=== PATIENT | female | born 1985 | race Asian ===

== ENCOUNTER 2020-08-20 11:06 | Emergency (ER) | payer BC ==
--- NOTE | 2020-08-20 11:34 | ED Physician Documentation ---
PD HPI ABD PAIN - Stated complaint Stated Complaint: NAUSEA,STOMACH PX - Chief complaint Chief Complaint: Abd Pain - History obtained from History obtained from: Patient - History of Present Illness Timing - onset: How many hours ago (few hours of notable/moderately severe pain lower abd; has had some cramping pains for 2-3 days but thought she might be constipated. Had her IU removed at PCP clinic about 1 1/2 months ago. Has not had period yet.), Today Timing - duration: Hours (few) Timing - details: Abrupt onset, Still present (it is lessening in severity since the onset this morning.) Quality: Cramping, Aching, Pain Location: RLQ, Suprapubic Radiation: Lower back Improved by: Laying still Worsened by: Moving, Palpation. No: Breathing Associated symptoms: Nausea, Constipation (had less stools for a few days, but then normal BM the past 2 days.). No: Fever, Vomiting, Diarrhea Similar symptoms before: Has not had sx before Recently seen: Clinic (IUD removed 1 1/2 weeks ago) Review of Systems Constitutional: denies: Fever, Chills Nose: denies: Rhinorrhea / runny nose, Congestion Throat: denies: Sore throat Respiratory: denies: Cough GI: reports: Abdominal Pain, Nausea. denies: Vomiting, Diarrhea : denies: Dysuria, Frequency, Discharge, Vaginal bleeding Skin: denies: Rash, Lesions PD PAST MEDICAL HISTORY - Past Medical History Past Medical History: No - Past Surgical History Past Surgical History: No - Present Medications Home Medications: Ambulatory Orders Medication Instructions Recorded Confirmed HYDROcod/ACETAM 5/325 [[place] 5/325] 1 ea PO Q6H PRN #15 tablet 08/20/20 Naproxen Sodium [Anaprox Ds] 550 mg PO BID #20 tablet 08/20/20 - Allergies Allergies/Adverse Reactions: Allergies Allergy/AdvReac Type Severity Reaction Status Date / Time No Known Drug Allergies Allergy Verified 08/20/20 13:11 PD ED PE NORMAL - Vitals Vital signs reviewed: Yes - General General: Alert and oriented X 3, Well developed/nourished, Other (seems somewhat in pain) - Neck Neck: Supple, no meningeal sign, No adenopathy - Cardiac Cardiac: RRR, No murmur - Respiratory Respiratory: Clear bilaterally - Abdomen Abdomen: Soft, Non distended, No organomegaly, Other (decreased bowel sounds and is tender lower abd mid and right with some mild guarding. No perucssion tenderness, but mild local rebound. ) - Female Female : Deferred - Rectal Rectal: Deferred - Back Back: No CVA TTP - Derm Derm: Normal color, Warm and dry - Extremities Extremities: No edema, No calf tenderness / cord - Neuro Neuro: Alert and oriented X 3, No motor deficit, Normal speech Results - Vitals Vitals: Vital Signs - 24 hr 08/20/20 08/20/20 11:11 13:40 Temperature 36.3 C L 37.0 C Heart Rate 78 68 Respiratory 16 12 Rate Blood Pressure 108/71 102/63 O2 Saturation 100 100 Oxygen O2 Source Room air - Labs Labs: Laboratory Tests 08/20/20 08/20/20 08/20/20 11:30 11:40 11:40 WBC 4.8 RBC 4.36 Hgb 13.3 Hct 40.6 MCV 93.1 MCH 30.5 MCHC 32.8 RDW 11.9 L Plt Count 319 MPV 9.7 Neut # (Auto) 2.6 Lymph # (Auto) 1.6 Mayes # (Auto) 0.3 Eos # (Auto) 0.3 Baso # (Auto) 0.0 Absolute Nucleated RBC 0.00 Nucleated RBC % 0.0 Sodium 141 Potassium 3.9 Chloride 106 Carbon Dioxide 27 Anion Gap 8.0 BUN 13 Creatinine 0.7 Estimated GFR (MDRD) 95 Glucose 80 Calcium 9.3 Total Bilirubin 0.8 AST 16 ALT 14 Alkaline Phosphatase 33 L Total Protein 7.2 Albumin 4.1 Globulin 3.1 Albumin/Globulin Ratio 1.3 Lipase 82 H Urine Color YELLOW Urine Clarity CLEAR Urine pH 7.0 Ur Specific [place] 1.010 Urine Protein NEGATIVE Urine Glucose (UA) NEGATIVE Urine Ketones NEGATIVE Urine Occult Blood NEGATIVE Urine Nitrite NEGATIVE Urine Bilirubin NEGATIVE Urine Urobilinogen 0.2 (NORMAL) Ur Leukocyte Esterase MODERATE H Urine RBC 0-5 Urine WBC 6-10 H Ur Squamous Epith Cells FEW Squamous Urine Bacteria Few Ur Microscopic Review INDICATED Urine Culture Comments INDICATED Urine HCG, Qual NEGATIVE - Rads (name of study) pelvic U/S Radiology: Prelim report reviewed, See rad report, Other (from U/S tech - large partly collapsed cyst 5x3x2 cm with moderate free fluid in pelvis. ) PD MEDICAL DECISION MAKING - ED course Complexity details: considered differential (not peritoneal on exam, but does have local lower abd tenderness, more to the right. ), d/w patient, d/w excellence consultant (Dr. Richard, senior coldfusion developer, who said no acute interventions needed and will follow up pt in office and repeat U/S at an interval assuming pain improves. ) Departure - Departure Disposition: 01 Home, Self Care Clinical Impression: Acute pelvic pain Ovarian cyst Qualifiers: Laterality: right Qualified Code(s): N83.201 - Unspecified ovarian cyst, right side Condition: Stable Record reviewed to determine appropriate education?: Yes Instructions: ED Cyst Ovarian Follow-Up: Tiffanie Richard MD [Provider Admit Priv/Credential] - Prescriptions: Naproxen Sodium [Anaprox Ds] 550 mg PO BID #20 tablet HYDROcod/ACETAM 5/325 [[place] 5/325] 1 ea PO Q6H PRN #15 tablet PRN Reason: Pain Comments: Your ultrasound shows an ovarian cyst that is partially collapsed, meaning it is leaking its fluid out into your pelvic area causing the pain and irritation. This is typically not a problem as long as it does not cause too much pain and as long as the cyst collapses completely and does not continue. In the short-term we would treat with anti-inflammatories of naproxen or ibuprofen and add Tylenol or hydrocodone as needed for pain. I would anticipate improvement in your pain over the next several days and be resolved within 3 to 5 days. Return if worse despite medicines. Follow-up with gynecology over the next 2 to 3 weeks for a recheck and they would likely want to reultrasound to make sure the cyst is completely resolved. Return if worsening pain or problems. Discharge Date/Time: 08/20/20 14:39
[2020-08-20 11:49] LABS: BILIRUBIN,URINE NEGATIVE (NEGATIVE); GLUCOSE, URINE (UA) NEGATIVE (NEGATIVE); KETONES,URINE (UA) NEGATIVE (NEGATIVE); LEUKOCYTE ESTERASE, URINE MODERATE (NEGATIVE); NITRITE,URINE NEGATIVE (NEGATIVE); OCCULT BLOOD,URINE NEGATIVE (NEGATIVE); PROTEIN,URINE NEGATIVE (NEGATIVE); UROBILINOGEN,URINE 0.2 (NORMAL) E.U./dL (NORMAL)
[2020-08-20 11:50] LABS: CLARITY,URINE CLEAR (CLEAR)
[2020-08-20 11:51] LABS: HCG UR QUAL NEGATIVE
[2020-08-20] MEDS ORDERED: KETOROLAC 15 MG/ML VIAL IVP STA (12:00)
[2020-08-20] MEDS ORDERED: DOCUSATE SODIUM 100 MG CAPSULE PO STA (12:00)
[2020-08-20 12:03] LABS: BASOPHILS % (AUTO) 0.6 %; EOSINOPHILS # (AUTO) 0.3 10^3/uL (0.0-0.7); EOSINOPHILS % (AUTO) 5.8 %; HCT - HEMATOCRIT 40.6 % (37.0-47.0); HGB - HEMOGLOBIN 13.3 g/dL (12.0-16.0); LYMPHOCYTES # (AUTO) 1.6 10^3/uL (1.5-3.5); LYMPHOCYTES % (AUTO) 33.5 %; MEAN CORPUSCULAR HEMOGLOBIN 30.5 pg (27.0-31.0); MEAN CORPUSCULAR HGB CONC 32.8 g/dL (32.0-36.0); MEAN CORPUSCULAR VOLUME 93.1 fL (81.0-99.0); MEAN PLATELET VOLUME 9.7 fL (7.9-10.8); MONOCYTES # (AUTO) 0.3 10^3/uL (0.0-1.0); MONOCYTES % (AUTO) 5.6 %; NEUTROPHILS # (AUTO) 2.6 10^3/uL (1.5-6.6); NEUTROPHILS % (AUTO) 54.3 %; PLT - PLATELET COUNT 319 10^3/uL (130-450); RED BLOOD COUNT 4.36 10^6/uL (4.20-5.40); RED CELL DISTRIBUTION WIDTH 11.9 % (12.0-15.0); WHITE BLOOD COUNT 4.8 x10^3/uL (4.8-10.8)
[2020-08-20 12:04] LABS: BACTERIA,URINE Few /HPF (None Seen); RBC,URINE 0-5 /HPF (0-5); SQUAMOUS EPITHELIAL CELL,UR FEW Squamous (<= Few)
[2020-08-20 12:16] LABS: ALBUMIN 4.1 g/dL (3.2-5.5); ALBUMIN/GLOBULIN RATIO 1.3 (1.0-2.2); BILIRUBIN,TOTAL 0.8 mg/dL (0.2-1.0); CALCIUM 9.3 mg/dL (8.5-10.3); CREATININE 0.7 mg/dL (0.4-1.0); POTASSIUM 3.9 mmol/L (3.5-5.0); TOTAL PROTEIN 7.2 g/dL (6.7-8.2)
[2020-08-20] MEDS ORDERED: ONDANSETRON 4 MG/2 ML VIAL IVP STA (13:32)
[2020-08-20] MEDS ORDERED: AMOX/CLAV 875 MG/125 MG TABLET PO STA (13:32)
[2020-08-20 13:41] VITALS: BP 102/63
--- NOTE | 2020-08-20 13:53 | Ultrasound Report ---
PROCEDURE: Pelvic w/Transvag+Doppler Comp INDICATIONS: lower abd cramping; IUD removed a month ago TECHNIQUE: Real-time scanning was performed of the pelvic organs, with image documentation. Additional endovagi nal scanning was necessary due to incomplete visualization of the adnexal and endometrial structures by transabdominal scanning. COMPARISON: None. FINDINGS: Transabdominal scanning: Limited scanning through the kidneys shows no hydronephrosis. There is a sm all amount of free abdominal or pelvic fluid. Endovaginal scanning: Uterus: Uterus is normal in size at 8.4 x 4.6 x 4.3 cm. Uterus is anteverted. The endometrium measu res 1.4 mm in combined thickness. Ovaries: Right ovary measures 6.4 x 2.8 x 2.4 cm. There is a 5.2 x 2.0 x 3.6 cm cyst in the right ov [place]. Left ovary measures 3.5 x 2.2 x 1.9 cm. IMPRESSION: 1. A 5.2 x 2.0 x 3.6 cm cyst in the right ovary. Recommend a short-term follow-up ultrasound in 6 wee ks. 2. Normal left ovary. 3. Unremarkable ultrasound appearance of uterus. 4. A small amount of free fluid in pelvis, which is nonspecific. Reviewed by: Lucy Hogan MD on 08/20/2020 1:52 PM PST Approved by: Lucy Hogan MD on 08/20/2020 1:52 PM PST Station ID: [id number]
== END 2020-08-20 14:39 | disposition home or self-care (01) ==
LOC: EDBD → ED 11:06
DX: N83.201 Unspecified ovarian cyst, right side (principal); R10.2 Pelvic and perineal pain
CPT/HCPCS: 36415; 76830; 76856; 80053; 81001; 81025; 83690; 85025; 87086; 93975; 96374; 96375; 99284; A9270; 81003

== ENCOUNTER 2020-09-10 07:00 | Outpatient (CLI) | payer BC ==
[2020-09-11 21:30] LABS: TRICHOMONAS VAGINALIS DNA UNRESOLVED (NEGATIVE)
== END 2020-09-10 23:59 | disposition home or self-care (01) ==
LOC: LAB.R 07:00
PROVIDERS: ATTEND Obstetrics & Gynecology
DX: Z11.3 Encounter for screening for infections with a predominantly sexual mode of transmission (principal)
CPT/HCPCS: 87491; 87591; 87661

== ENCOUNTER 2020-09-20 15:14 | Outpatient (CLI) | payer BC ==
--- NOTE | 2020-09-20 16:51 | Ultrasound Report ---
PROCEDURE: Pelvic w/Transvaginal INDICATIONS: RT SIDE OVARIAN CYST TECHNIQUE: Real-time scanning was performed of the pelvic organs, with image documentation. Additional endovagi nal scanning was necessary due to incomplete visualization of the adnexal and endometrial structures by transabdominal scanning. COMPARISON: None. FINDINGS: No pathologic free abdominal or pelvic fluid. Uterus: Uterus is normal in size at 8.9 x 4.1 x 4.3 cm. The endometrium measures 7 mm in combined t hickness. Ovaries: Right ovary measures 3.0 x 1.2 x 1.7 cm, volume 3.2 cc. Left ovary measures 3.5 x 2.0 x 2.3 cm, 8.7 cc. There is a focal area of heterogeneous echogenicity within the left ovary. Previous left ovarian cyst is no longer visualized. IMPRESSION: 1. Suspect hemorrhagic cyst of the left ovary as above. Reviewed by: Tiffany Gomez MD on 09/20/2020 4:50 PM PST Approved by: Tiffany Gomez MD on 09/20/2020 4:50 PM PST Station ID: [id number]
== END 2020-09-20 15:15 | disposition home or self-care (01) ==
LOC: DI 15:14
PROVIDERS: ATTEND Obstetrics & Gynecology
DX: N83.291 Other ovarian cyst, right side (principal); N83.202 Unspecified ovarian cyst, left side

== ENCOUNTER 2020-10-10 07:00 | Outpatient (CLI) | payer BC ==
[2020-10-10 23:48] LABS: TRICHOMONAS VAGINALIS DNA NEGATIVE (NEGATIVE)
== END 2020-10-10 23:59 | disposition home or self-care (01) ==
LOC: LAB.R 07:00
PROVIDERS: ATTEND Obstetrics & Gynecology
DX: Z11.3 Encounter for screening for infections with a predominantly sexual mode of transmission (principal)
CPT/HCPCS: 87491; 87591; 87661; 87801

== ENCOUNTER 2021-11-26 07:53 | Outpatient (CLI) | payer BC ==
[2021-11-26 12:38] LABS: ALBUMIN 4.2 g/dL (3.2-5.5); ALBUMIN/GLOBULIN RATIO 1.2 (1.0-2.2); ALKALINE PHOSPHATASE 27 IU/L (42-121); ALT ALANINE AMINOTRANSFERASE 21 IU/L (10-60); AST ASPARTATE AMINOTRANSFERASE 21 IU/L (10-42); BILIRUBIN,TOTAL 0.3 mg/dL (0.2-1.0); BUN - BLOOD UREA NITROGEN 13 mg/dL (6-20); CALCIUM 8.9 mg/dL (8.5-10.3); CARBON DIOXIDE - CO2 25 mmol/L (21-32); CHLORIDE 102 mmol/L (101-111); CHOL/HDL RATIO 4.9 (<4.4); CHOLESTEROL 262 mg/dL; CREATININE 0.9 mg/dL (0.4-1.0); GFR - MDRD 71 (>89); GLUCOSE 85 mg/dL (70-100); HDL CHOLESTEROL 54 mg/dL; LDL CHOLESTEROL,CALCULATED 183 mg/dL; LDL/HDL RATIO 3.4 (<4.4); POTASSIUM 3.3 mmol/L (3.5-5.0); SODIUM 135 mmol/L (135-145); TOTAL PROTEIN 7.7 g/dL (6.7-8.2); TRIGLYCERIDES 126 mg/dL; VLDL CHOLESTEROL 25 mg/dL
[2021-11-26 12:58] LABS: BASOPHILS % (AUTO) 0.5 %; EOSINOPHILS # (AUTO) 0.3 10^3/uL (0.0-0.7); EOSINOPHILS % (AUTO) 4.7 %; HCT - HEMATOCRIT 40.2 % (37.0-47.0); HGB - HEMOGLOBIN 13.1 g/dL (12.0-16.0); LYMPHOCYTES # (AUTO) 2.5 10^3/uL (1.5-3.5); LYMPHOCYTES % (AUTO) 39.1 %; MEAN CORPUSCULAR HEMOGLOBIN 29.8 pg (27.0-31.0); MEAN CORPUSCULAR HGB CONC 32.6 g/dL (32.0-36.0); MEAN CORPUSCULAR VOLUME 91.4 fL (81.0-99.0); MEAN PLATELET VOLUME 10.1 fL (7.9-10.8); MONOCYTES # (AUTO) 0.3 10^3/uL (0.0-1.0); MONOCYTES % (AUTO) 3.9 %; NEUTROPHILS # (AUTO) 3.3 10^3/uL (1.5-6.6); NEUTROPHILS % (AUTO) 51.5 %; PLT - PLATELET COUNT 322 10^3/uL (130-450); RED CELL DISTRIBUTION WIDTH 11.7 % (12.0-15.0); WHITE BLOOD COUNT 6.5 x10^3/uL (4.8-10.8)
== END 2021-11-26 07:54 | disposition home or self-care (01) ==
LOC: LAB.N 07:53
PROVIDERS: ATTEND Nurse Practitioner
DX: Z00.00 Encounter for general adult medical examination without abnormal findings (principal); Z13.220 Encounter for screening for lipoid disorders
CPT/HCPCS: 36415; 80053; 80061; 83721; 85025

== ENCOUNTER 2022-11-10 09:00 | Outpatient (CLI) | payer BC ==
[2022-11-10 12:05] LABS: BASOPHILS % (AUTO) 0.7 %; EOSINOPHILS # (AUTO) 0.2 10^3/uL (0.0-0.7); EOSINOPHILS % (AUTO) 5.7 %; HCT - HEMATOCRIT 40.7 % (37.0-47.0); HGB - HEMOGLOBIN 13.2 g/dL (12.0-16.0); LYMPHOCYTES # (AUTO) 1.8 10^3/uL (1.5-3.5); LYMPHOCYTES % (AUTO) 44.6 %; MEAN CORPUSCULAR HEMOGLOBIN 29.8 pg (27.0-31.0); MEAN CORPUSCULAR HGB CONC 32.4 g/dL (32.0-36.0); MEAN CORPUSCULAR VOLUME 91.9 fL (81.0-99.0); MEAN PLATELET VOLUME 9.7 fL (7.9-10.8); MONOCYTES # (AUTO) 0.2 10^3/uL (0.0-1.0); MONOCYTES % (AUTO) 5.4 %; NEUTROPHILS # (AUTO) 1.8 10^3/uL (1.5-6.6); NEUTROPHILS % (AUTO) 43.1 %; PLT - PLATELET COUNT 292 10^3/uL (130-450); RED BLOOD COUNT 4.43 10^6/uL (4.20-5.40); RED CELL DISTRIBUTION WIDTH 11.4 % (12.0-15.0); WHITE BLOOD COUNT 4.1 x10^3/uL (4.8-10.8)
[2022-11-10 12:34] LABS: ALBUMIN 4.2 g/dL (3.2-5.5); ALBUMIN/GLOBULIN RATIO 1.2 (1.0-2.2); BILIRUBIN,TOTAL 0.3 mg/dL (0.2-1.0); CALCIUM 9.4 mg/dL (8.5-10.3); CREATININE 0.6 mg/dL (0.4-1.0); POTASSIUM 4.1 mmol/L (3.5-5.0); TOTAL PROTEIN 7.7 g/dL (6.7-8.2)
[2022-11-10 12:35] LABS: THYROID STIMULATING HORMONE 0.75 uIU/mL (0.34-5.60)
== END 2022-11-10 09:15 | disposition home or self-care (01) ==
LOC: LAB.N 09:00
PROVIDERS: ATTEND Physician Assistant
DX: R51.9 Headache, unspecified (principal); R42 Dizziness and giddiness
CPT/HCPCS: 36415; 80053; 84443; 85025

== ENCOUNTER 2023-03-24 13:54 | Outpatient (CLI) | payer BC ==
--- NOTE | 2023-04-07 09:18 | Ultrasound Report ---
PROCEDURE: Axilla INDICATIONS: LIPOMA OF SKIN TECHNIQUE: Real-time focused scanning was performed of the right axilla, with image documentation. COMPARISON: None. FINDINGS: Targeted ultrasound of right axilla demonstrates a isoechoic, fat-containing lesion with p artial encapsulation in the right axilla, measuring 5.4 x 1.4 x 5.1 cm. IMPRESSION: 5.4 cm right axillary lipoma. Reviewed by: Sal William on 04/07/2023 9:17 AM PDT Approved by: Sal William on 04/07/2023 9:17 AM PDT Station ID: [id number]
== END 2023-03-24 13:55 | disposition home or self-care (01) ==
LOC: DI 13:54
PROVIDERS: ATTEND Nurse Practitioner
DX: D17.1 Benign lipomatous neoplasm of skin and subcutaneous tissue of trunk (principal)

== ENCOUNTER 2024-02-09 21:07 | Outpatient (CLI) | payer BC | END 2024-02-09 23:59 | disposition EMS.NT | LOC: EMS 21:07 | DX: R42 Dizziness and giddiness (principal); R20.2 Paresthesia of skin ==

== ENCOUNTER 2024-02-09 21:50 | Emergency (ER) | payer BC ==
[2024-02-09 22:40] VITALS: O2SAT 100
--- NOTE | 2024-02-10 00:13 | ED Physician Documentation ---
History of Present Illness - Stated complaint Stated Complaint: SHAKY - Chief complaint Chief Complaint: General - History obtained from History obtained from: Patient, Family (spouse) - Additonal information Additional information: 38yF previously healthy p/w extremity tingling and numbness over the past couple days and intermittent soa. denies cough, fever, hemoptysis, leg swelling, cp, nausea. patient felt extremely anxious tonight about her symptoms around 10pm and presented to the ED for eval. 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[place] [employer] PAST MEDICAL HISTORY - Past Medical History Past Medical History: No Cardiovascular: None Respiratory: None Neuro: None Endocrine/Autoimmune: None GI: None HEMP FIBER TAKER OFF: None : None HEENT: None Psych: None Musculoskeletal: None Derm: None - Past Surgical History Past Surgical History: No - Present Medications Home Medications: Ambulatory Orders Medication Instructions Recorded Confirmed No Known Home Medications 02/09/24 02/09/24 - Allergies Allergies/Adverse Reactions: Allergies Allergy/AdvReac Type Severity Reaction Status Date / Time No Known Drug Allergies Allergy Verified 02/09/24 22:32 - Social History Does the pt smoke?: No Smoking Status: Never smoker Does the pt drink ETOH?: No Does the pt have substance abuse?: No - Immunizations Immunizations are current?: Yes - POLST Patient has POLST: No PD ED PE NORMAL - Vitals Vital signs reviewed: Yes - General General: Alert and oriented X 3, No acute distress, Well developed/nourished - HEENT HEENT: Atraumatic, PERRL, EOMI - Neck Neck: Supple, no meningeal sign - Cardiac Cardiac: RRR - Respiratory Respiratory: No respiratory distress, Clear bilaterally - Derm Derm: Normal color, Warm and dry - Neuro Neuro: Alert and oriented X 3, ramp manager 2-12 intact, No motor deficit, No sensory deficit, Normal speech Results - Vitals Vitals: Vital Signs - 24 hr 02/09/24 22:18 Temperature 36.8 C Heart Rate 113 H Respiratory 18 Rate Blood Pressure 107/86 H O2 Saturation 100 Oxygen O2 Source Room air PD Medical Decision Making - ED course ED course: 38yF p/w Multiple medical symptoms including shortness of breath, hand tingling, shaking, and anxiety. She is well-appearing with benign exam and her symptoms seem to have improved on their own. No neurological deficits and is well- appearing with benign exam. Plan is to follow-up outpatient with her primary care provider. Return precautions given. Departure - Departure Disposition: 01 Home, Self Care Clinical Impression: Shaking, Tingling in extremities, Numbness of extremity Condition: Stable Comments: You were seen in the emergency department for medical evaluation. Please follow-up with your primary care provider and return to the emergency department if you have any new or worsening symptoms or other concerns.
[2024-02-10 00:39] VITALS: BP 113/80
== END 2024-02-10 00:36 | disposition home or self-care (01) ==
LOC: ED 21:50
DX: R20.2 Paresthesia of skin (principal); R20.0 Anesthesia of skin
CPT/HCPCS: 99282; 99283

== ENCOUNTER 2024-02-29 09:05 | Outpatient (CLI) | payer BC | END 2024-02-29 09:06 | disposition home or self-care (01) | LOC: LAB.N 09:05 | PROVIDERS: ATTEND Nurse Practitioner | DX: R06.02 Shortness of breath (principal) ==

== ENCOUNTER 2024-02-29 09:13 | Outpatient (CLI) | payer BC ==
--- NOTE | 2024-02-29 10:29 | XRAY Report ---
PROCEDURE: Chest 2V INDICATIONS: SHORTNESS OF BREATH TECHNIQUE: 2 views of the chest were acquired. COMPARISON: None. FINDINGS: Surgical changes and devices: None. Lungs and pleura: No pleural effusions or pneumothorax. Lungs are clear. Mediastinum: Mediastinal contours appear normal. Heart size is normal. Bones and chest wall: No suspicious bony lesions. Overlying soft tissues appear unremarkable. IMPRESSION: No acute cardiopulmonary process. Reviewed by: Valente Elder MD on 02/29/2024 10:28 AM PDT Approved by: Valente Elder MD on 02/29/2024 10:28 AM PDT Station ID: [id number]
[2024-02-29 12:30] LABS: BASOPHILS % (AUTO) 0.7 %; EOSINOPHILS # (AUTO) 0.2 10^3/uL (0.0-0.7); EOSINOPHILS % (AUTO) 4.4 %; HCT - HEMATOCRIT 40.3 % (37.0-47.0); HGB - HEMOGLOBIN 12.6 g/dL (12.0-16.0); LYMPHOCYTES # (AUTO) 1.8 10^3/uL (1.5-3.5); LYMPHOCYTES % (AUTO) 42.9 %; MEAN CORPUSCULAR HEMOGLOBIN 29.4 pg (27.0-31.0); MEAN CORPUSCULAR HGB CONC 31.3 g/dL (32.0-36.0); MEAN CORPUSCULAR VOLUME 93.9 fL (81.0-99.0); MEAN PLATELET VOLUME 9.9 fL (7.9-10.8); MONOCYTES # (AUTO) 0.2 10^3/uL (0.0-1.0); MONOCYTES % (AUTO) 4.4 %; NEUTROPHILS % (AUTO) 47.6 %; PLT - PLATELET COUNT 315 10^3/uL (130-450); RED BLOOD COUNT 4.29 10^6/uL (4.20-5.40); RED CELL DISTRIBUTION WIDTH 11.8 % (12.0-15.0); WHITE BLOOD COUNT 4.3 x10^3/uL (4.8-10.8)
[2024-02-29 13:01] LABS: ALBUMIN 4.3 g/dL (3.2-5.5); ALBUMIN/GLOBULIN RATIO 1.2 (1.0-2.2); ALKALINE PHOSPHATASE 32 IU/L (42-121); ALT ALANINE AMINOTRANSFERASE 15 IU/L (10-60); AST ASPARTATE AMINOTRANSFERASE 18 IU/L (10-42); BILIRUBIN,TOTAL 0.5 mg/dL (0.2-1.0); BUN - BLOOD UREA NITROGEN 10 mg/dL (6-20); CALCIUM 9.6 mg/dL (8.5-10.3); CARBON DIOXIDE - CO2 28 mmol/L (21-32); CHLORIDE 104 mmol/L (101-111); CHOLESTEROL 220 mg/dL; CREATININE 0.7 mg/dL (0.6-1.3); GFR - MDRD 94 (>89); GLUCOSE 88 mg/dL (74-104); HDL CHOLESTEROL 55 mg/dL; LDL CHOLESTEROL,CALCULATED 137 mg/dL; LDL/HDL RATIO 2.5 (<4.4); POTASSIUM 3.8 mmol/L (3.5-4.5); SODIUM 137 mmol/L (135-145); TRIGLYCERIDES 140 mg/dL; VLDL CHOLESTEROL 28 mg/dL
[2024-02-29 13:10] LABS: THYROID STIMULATING HORMONE 0.71 uIU/mL (0.34-5.60)
== END 2024-02-29 09:14 | disposition home or self-care (01) ==
LOC: LAB.N 09:13 → DI.N 09:14
PROVIDERS: ATTEND Nurse Practitioner
DX: R06.02 Shortness of breath (principal); Z00.00 Encounter for general adult medical examination without abnormal findings; R20.2 Paresthesia of skin
CPT/HCPCS: 36415; 80053; 80061; 82607; 83721; 84443; 85025

== ENCOUNTER 2024-03-01 08:37 | Outpatient (CLI) | payer BC | END 2024-03-01 08:38 | disposition home or self-care (01) | LOC: LAB.N 08:37 | PROVIDERS: ATTEND Nurse Practitioner | DX: Z53.9 Procedure and treatment not carried out, unspecified reason (principal) ==

== ENCOUNTER 2024-03-08 08:51 | Outpatient (CLI) | payer BC | END 2024-03-08 08:52 | disposition home or self-care (01) | LOC: LAB.N 08:51 | PROVIDERS: ATTEND Nurse Practitioner | DX: R06.02 Shortness of breath (principal); R61 Generalized hyperhidrosis | CPT/HCPCS: 81599 ==

== ENCOUNTER 2024-03-13 13:07 | Outpatient (CLI) | payer BC ==
--- NOTE | 2024-03-13 18:52 | Ultrasound Report ---
PROCEDURE: Pelvic w/Transvaginal INDICATIONS: OVARIAN CYST TECHNIQUE: Real-time scanning was performed of the pelvic organs, with image documentation. Additional endovagi nal scanning was necessary due to incomplete visualization of the adnexal and endometrial structures by transabdominal scanning. COMPARISON: None. FINDINGS: Uterus: Uterus is anteverted and normal in size at 8.7 x 4.3 x 5.6 cm. The myometrium is homogeneou s. The endometrium measures 9.8 mm in combined thickness. No endometrial mass or fluid is seen. Ovaries: The right ovary measures 4 x 2.6 x 2.1 cm, with a calculated ovarian volume of 11.0 cc. Th e left ovary measures 2.2 x 1.6 x 1.5 cm, with a calculated ovarian volume of 2.7 cc. Simple cyst in right ovary measures 2.1 x 1.8 x 1.7 cm in size. Less than 12 follicles can be seen in each ovary. N o adnexal masses are seen. No cystic lesions measuring greater than 3 cm. Other: No pathologic free abdominal or pelvic fluid. IMPRESSION: 1. Simple cyst in right ovary measures 2.1 x 1.8 x 1.7 cm in size. 2. Likely physiologic amount of free fluid is seen in posterior cul-de-sac. 3. Normal-appearing left ovary, uterus and endometrium. Reviewed by: Delroy Payne MD on 03/13/2024 6:51 PM PDT Approved by: Delroy Payne MD on 03/13/2024 6:51 PM PDT Station ID: [id number]
== END 2024-03-13 13:08 | disposition home or self-care (01) ==
LOC: DI 13:07
PROVIDERS: ATTEND Nurse Practitioner
DX: N83.292 Other ovarian cyst, left side (principal); N83.291 Other ovarian cyst, right side

== ENCOUNTER 2024-03-13 13:12 | Outpatient (CLI) | payer BC ==
--- NOTE | 2024-03-16 09:15 | Mammography Report ---
BILATERAL DIGITAL SCREENING MAMMOGRAM 3D/2D: 03/13/2024 CLINICAL: Routine screening. Comparison is made to exam dated: 12/24/2021 mammogram - [facility]. Both breasts are extremely dense, which lowers the sensitivity of mammography (category d />75% gland ular tissue). No significant masses, calcifications, or other findings are seen in either breast. There has been no significant interval change. IMPRESSION: NEGATIVE There is no mammographic evidence of malignancy. A 1 year screening mammogram is recommended. Future imaging is recommended as follows: 08/01/2025 screening mammogram. Based on the Tyrer Cuzick model (a risk assessment model) the patient's lifetime risk is 13.8% and he r 10 year risk is 1.4%. According to the ACR, ACS, and NCCN guidelines, an annual breast MRI exam marva ng with mammogram is recommended if the patient's lifetime risk is 20% or greater. This exam was interpreted at Station ID: [id number]. NOTE: For mammograms, a report in lay terms will be sent to the patient. Approximately 15% of breast malignancies will not be visualized mammographically. In the management of a palpable breast mass, a negative mammogram must not discourage biopsy of a clinically suspicious lesion. Electronically Signed By: Wally nunez/jay:03/15/2024 15:40:57 letter sent: No_Letter ACR BI-RADS Category 1: Negative 3341F PARENCHYMAL PATTERN: (VD) - The breast(s) demonstrate(s) extremely dense parenchyma, limiting the sen sitivity of mammography. BI-RADS CATEGORY: (1) - 1 RECOMMENDATION: (ANNUAL) - Recommend routine annual screening mammography. [id number] 1 year screening LATERALITY: (B)
== END 2024-03-13 13:13 | disposition home or self-care (01) ==
LOC: DI 13:12
PROVIDERS: ATTEND Nurse Practitioner
DX: Z12.31 Encounter for screening mammogram for malignant neoplasm of breast (principal); R92.343 Mammographic extreme density, bilateral breasts